=== PATIENT | female | born 1975 | race Two or more races ===

== ENCOUNTER 2020-12-12 21:04 | Emergency (ER) | payer OTHER ==
[~2020-12-12] VITALS: Ht 160 cm; Wt 54.4 kg
[2020-12-12] MEDS ORDERED: INTESTINES (22:00)
[2020-12-12] MEDS ORDERED: PEPCID (22:00)
== END 2020-12-13 20:00 | disposition designated cancer center or children's hospital (05) ==
LOC: ER 21:04 → CPU-OBS 21:13 → ER 12-13 20:00
DX: K85.91 Acute pancreatitis with uninfected necrosis, unspecified (principal); J90 Pleural effusion, not elsewhere classified; K80.80 Other cholelithiasis without obstruction; R06.02 Shortness of breath; R50.9 Fever, unspecified; Z03.818 Encounter for observation for suspected exposure to other biological agents ruled out
CPT/HCPCS: G0378; G0379; 36600; 71250; 74177; 82805; 93005; 94640; Q9965